=== PATIENT | female | born 1945 | race Hispanic/Latino ===

== ENCOUNTER 2018-03-03 07:03 | Day surgery (SDC) | payer MEDICARE, OTHER ==
[2018-02-24 13:49] VITALS: BMI 34.7
[2018-03-03 07:32] VITALS: TEMP 97.8
[2018-03-03] MEDS ORDERED: Propofol 10 mg/ml Inj (20 ML) ONE (08:15)
[2018-03-03] MEDS ORDERED: Sodium Chloride 0.9% 1,000 ML IV SCH (09:15)
[2018-03-03 09:36] VITALS: O2SAT 96
[2018-03-03 10:10] VITALS: BP 142/86; PULSE 73; RESP 16
== END 2018-03-03 10:33 | disposition home or self-care (01) ==
LOC: ENDO 07:03
PROVIDERS: ATTEND Specialist
DX: Z12.11 Encounter for screening for malignant neoplasm of colon (principal); K57.30 Diverticulosis of large intestine without perforation or abscess without bleeding; D17.79 Benign lipomatous neoplasm of other sites; K64.8 Other hemorrhoids; I10 Essential (primary) hypertension; E78.00 Pure hypercholesterolemia, unspecified; Z85.3 Personal history of malignant neoplasm of breast; Z90.13 Acquired absence of bilateral breasts and nipples
CPT/HCPCS: 45378; J2704; J7030